=== PATIENT | female | born 1980 | race Caucasian/White ===

== ENCOUNTER → 2019-10-02 16:00 | Outpatient (BNVA) | payer MEDICAID, SELFPAY | PROVIDERS: Visit Provider Psychiatry & Neurology Psychiatry | DX: F31.9 Bipolar disorder, unspecified (principal) | CPT/HCPCS: 99214 ==

== ENCOUNTER → 2020-02-12 09:12 | Outpatient (BNVA) | payer MEDICAID, SELFPAY | PROVIDERS: Visit Provider Psychiatry & Neurology Psychiatry | DX: R45.86 Emotional lability (principal); Z03.89 Encounter for observation for other suspected diseases and conditions ruled out; F41.1 Generalized anxiety disorder | CPT/HCPCS: 99214 ==

== ENCOUNTER → 2020-05-27 07:49 | Outpatient (BNVA) | payer MEDICAID, SELFPAY | PROVIDERS: Visit Provider Nurse Practitioner | DX: F31.0 Bipolar disorder, current episode hypomanic (principal) | CPT/HCPCS: 99203 ==

== ENCOUNTER → 2020-06-16 10:02 | Outpatient (BNVA) | payer MEDICARE, MEDICAID, SELFPAY | PROVIDERS: Visit Provider Psychiatry & Neurology Psychiatry | DX: R45.86 Emotional lability (principal); Z79.899 Other long term (current) drug therapy; Z03.89 Encounter for observation for other suspected diseases and conditions ruled out | CPT/HCPCS: 80053; 80178; 84443; 85025 ==

== ENCOUNTER 2021-05-17 12:07 | Emergency (ER) | payer MEDICARE, MEDICAID, SELFPAY ==
[2021-05-17 12:11] VITALS: BP 130/94; PULSE 113; RESP 22; TEMP 36.7; O2SAT 98; BMI 20.3
--- NOTE | 2021-05-17 12:33 | XRR_ITS ---
PROCEDURE INFORMATION: Exam: XR Chest Exam date and time: 05/17/2021 12:33 PM Age: 41 years old Clinical indication: Cough; Patient HX: History--covid precautions; PT stated she feels like she has pneumonia; PT unable to put bra completely off due to iv line TECHNIQUE: Imaging protocol: XR of the chest. Views: 1 view. COMPARISON: CR Chest 1 [place] [id number] 06/18/2018 3:46 PM FINDINGS: Lungs: Unremarkable. No consolidation. Pleural spaces: Unremarkable. No pleural effusion. No pneumothorax. Heart/Mediastinum: Unremarkable. No cardiomegaly. Bones/joints: Unremarkable. XR/XR chest 1V portable [id number] IMPRESSION: No acute findings. Radiation Dose CTDIVOL = (mGy): DLP = (mGy-cm)
--- NOTE | 2021-05-17 13:08 | ED_ITS ---
HPI - SOB/Dyspnea General: Chief Complaint: Shortness of Breath/Dyspnea Stated Complaint: PNEUMONIA, BODY ACHES Time Seen by Provider: 05/17/21 12:17 History of Present Illness: HPI Narrative: 41-year-old female presents emergency room complaining of generalized body aches cough congestion myalgias diarrhea. Intermittently she has had a cough for almost a month recently has been worsening. Patient states she is used alcohol marijuana and several [id number] medications with no real significant improvement. No vomiting. Denies hematochezia melena hematemesis coffee-ground emesis. MD elicited complaint: shortness of breath and cough Pertinent past history: COPD Onset (ago): week(s) Context: occurred during exertion Timing: intermittent Severity: moderate Exacerbating factors: nothing Relieving factors: nothing Known history of: COPD Associated symptoms: Deny abdominal pain, chest congestion, chest pain, cough, diaphoresis, dizziness, extremity pain, fever(s), hemoptysis, lightheadedness, myalgias, nausea, orthopnea, palpitations, paresthesias, polydipsia, polyuria, rash, sense of impending doom, syncope or vomiting Treatment prior to arrival: none Review of Systems Const: Denies: fever(s) or diaphoresis ENMT: Denies: throat pain, ear or mastoid pain, nasal discharge or nasal congestion Card: Denies: chest pain, palpitations, lightheadedness, syncope or orthopnea Resp: Denies: hemoptysis or chest congestion GI: Denies: abdominal pain, nausea or vomiting : Denies: flank pain, difficulty voiding, dysuria, urinary frequency or urinary urgency Musc: Denies: extremity pain Skin/Breast: Denies: rash or pruritus Neuro: Denies: dizziness Endo: Denies: polyuria or polydipsia PFS ED PFSH: Medical History Other long-term (current) drug therapy Social History Smoking and tobacco status: current every day smoker Physical Exam Const: COMMON NORMALS: no acute distress GENERAL APPEARANCE: cooperative and comfortable ORIENTATION/CONSCIOUSNESS: Yes awake, Yes oriented to person, Yes oriented to place and Yes oriented to time HENMT: COMMON NORMALS: normocephalic, atraumatic and hearing grossly normal bilaterally HEAD & SCALP: normocephalic and atraumatic Neck/C-Spine: COMMON NORMALS: no JVD Resp: AUSCULTATION: rhonchi and wheezes Cardio: COMMON NORMALS: no JVD, regular rate, regular rhythm and No murmurs present (Cardio) RATE: regular rate RHYTHM: regular rhythm GI: COMMON NORMALS: Soft to palpation and No hepatosplenomegaly present AUSCULTATION: Yes normoactive bowel sounds PALPATION: Yes Soft to palpation, No Tenderness to palpation present (GI), No Guarding due to palpation present (GI) and Yes No hepatosplenomegaly present Extremity: COMMON NORMALS: normal to inspection, capillary refill normal, no clubbing, cyanosis or edema, no calf tenderness and no pedal edema Neuro: SENSORIUM/ORIENTATION: Yes oriented to person, Yes oriented to place and Yes oriented to time Skin: COMMON NORMALS: no rashes or lesions noted GENERAL SKIN EXAM: no rashes or lesions noted Course Vital Signs: Vital signs: Vital Signs Temperature 98.1 F 05/17/21 12:11 Pulse Rate 110 H 05/17/21 16:29 Respiratory Rate 16 05/17/21 16:29 Blood Pressure 147/85 05/17/21 16:29 Pulse Oximetry 98 05/17/21 16:29 MDM - SOB/Dyspnea MDM Narrative: Medical decision making narrative: Patient acutely intoxicated. Mild exacerbation of COPD. Started on antibiotics steroids albuterol as needed encourage alcohol abstinence follow-up as needed Lab Data: Labs: Lab Results 05/17/21 05/17/21 05/17/21 13:32 13:32 13:32 WBC 9.2 10^3/uL 10^3/ uL (4.0-10.0) RBC 4.42 10^6/uL 10^6 /uL (4.1-5.3) Hgb 12.8 g/dL g/dL (11.5-15.3) Hct 37.9 % % (37.0-47.0) MCV 85.7 fl fl (81-99) MCH 29.0 pg pg (28.0-34.0) MCHC 33.8 g/dL g/dL (30.0-36.0) RDW 18.7 % H % (12.1-15.1) Plt Count 320 10^3/cmm 10^3 /cmm (130-400) MPV 10.8 fL H fL (7.4-10.4) Neut % (Auto) 74.2 % % Lymph % (Auto) 16.2 % % [place] % (Auto) 8.3 % % Eos % (Auto) 0.1 % % Baso % (Auto) 0.8 % % Neut # (Auto) 6.85 10^3/uL 10^3 /uL (1.8-7.7) Lymph # (Auto) 1.5 10^3/uL 10^3/ uL (0.8-4.8) [place] # (Auto) 0.8 10^3/uL 10^3/ uL (0.2-0.9) Eos # (Auto) 0.0 10^3/uL 10^3/ uL (0.0-0.8) Baso # (Auto) 0.1 10^3/uL 10^3/ uL (0.0-0.1) Nucleated RBC % (a uto) 0 % % Nucleated RBCs # 0.0 /100WBC /100W BC C-Reactive Protein 0.3 mg/L mg/L (0.0-4.9) [place] 1.1 mmol/L mmol/L (0.6-1.2) Ethyl Alcohol 261 mg/dL H mg/dL (0-10) SARS-CoV-2 Ag (Rap id) 05/17/21 13:32 WBC RBC Hgb Hct MCV MCH MCHC RDW Plt Count MPV Neut % (Auto) Lymph % (Auto) [place] % (Auto) Eos % (Auto) Baso % (Auto) Neut # (Auto) Lymph # (Auto) [place] # (Auto) Eos # (Auto) Baso # (Auto) Nucleated RBC % (a uto) Nucleated RBCs # C-Reactive Protein [place] Ethyl Alcohol SARS-CoV-2 Ag (Rap id) Negative (Negative) Discharge Plan Discharge Patient Disposition: Home Clinical Impression: Bronchitis, Alcohol intoxication Condition: Stable Prescriptions: New doxycycline hyclate 100 mg capsule 100 mg PO BID 10 Days Qty: 20 RF: 0 Medrol ([place]) 4 mg tablets,dose pack See Rx Instructions .ROUTE .COMPLEX Qty: 21 RF: 0 albuterol sulfate 90 mcg/actuation HFA aerosol inhaler 2 inh INHALATION Q4H PRN (Reason: shortness of breath or wheezing) Qty: 18 RF: 0 No Action lithium carbonate 450 mg tablet extended release 450 mg PO DAILY Qty: 30 RF: 2 Discharge Orders: Discharge ED (Routine); Ordered 05/17/21 Ordered By: Baron Moreno Discharge Diet: Usual diet Discharge Activity: Increase activity as tolerated Patient Instructions: Opioid Safety Coding Level of Care Code ED Student Admissions Clerk for Glenis Fwd Exam Comprehensive
[2021-05-17 13:49] LABS: Basophils # 0.1 10^3/uL (0.0-0.1); Basophils % 0.8 %; Eosinophils % 0.1 %; Hematocrit 37.9 % (37.0-47.0); Hemoglobin 12.8 g/dL (11.5-15.3); Lymphocytes # 1.5 10^3/uL (0.8-4.8); Lymphocytes % 16.2 %; Mean Corpuscular HGB Conc 33.8 g/dL (30.0-36.0); Mean Corpuscular Volume 85.7 fl (81-99); Mean Platelet Volume 10.8 fL (7.4-10.4); Monocytes # 0.8 10^3/uL (0.2-0.9); Monocytes % 8.3 %; Neutrophils # 6.85 10^3/uL (1.8-7.7); Neutrophils % 74.2 %; Nucleated Red Blood Cells % 0 %; Platelet Count 320 10^3/cmm (130-400); Red Blood Count 4.42 10^6/uL (4.1-5.3); Red Cell Distribution Width 18.7 % (12.1-15.1); White Blood Count 9.2 10^3/uL (4.0-10.0)
[2021-05-17 14:04] LABS: Alcohol Level 261 mg/dL (0-10); C Reactive Protein 0.3 mg/L (0.0-4.9)
[2021-05-17 14:11] LABS: SARS Covid-2 Antigen Negative (Negative)
[2021-05-17 14:14] LABS: Lithium 1.1 mmol/L (0.6-1.2)
[2021-05-17 15:57] VITALS: BP 136/80; PULSE 110; RESP 19; O2SAT 98
[2021-05-17 16:29] VITALS: BP 147/85; PULSE 110; RESP 16; O2SAT 98
== END 2021-05-17 16:37 | disposition home or self-care (01) ==
PROVIDERS: Emergency Provider Family Medicine
DX: J40 Bronchitis, not specified as acute or chronic (principal); F10.129 Alcohol abuse with intoxication, unspecified; F12.90 Cannabis use, unspecified, uncomplicated; Y90.8 Blood alcohol level of 240 mg/100 ml or more; J44.9 Chronic obstructive pulmonary disease, unspecified
CPT/HCPCS: 71045; 80178; 80307; 85025; 86140; 87426; 99282

== ENCOUNTER 2021-09-14 22:46 | Emergency (ER) | payer MEDICARE, MEDICAID, SELFPAY ==
--- NOTE | 2021-09-14 22:51 | XRR_ITS ---
PROCEDURE INFORMATION: Exam: XR Left Foot Exam date and time: 09/14/2021 10:51 PM Age: 41 years old Clinical indication: Ankle and foot; Patient HX: Pain to lateral aspect of foot and ankle of left side. No known injury TECHNIQUE: Imaging protocol: XR Left foot. Views: 3 or more views. COMPARISON: No relevant prior studies available. FINDINGS: There is no evidence of fracture. The joint spaces are well maintained. There is no bony destruction. XR/XR foot LT min 3V* [id number] IMPRESSION: No evidence of fracture. Is
--- NOTE | 2021-09-14 22:51 | XRR_ITS ---
PROCEDURE INFORMATION: Exam: XR Left Ankle Exam date and time: 09/14/2021 10:51 PM Age: 41 years old Clinical indication: Pain; Ankle and foot; Patient HX: Injury to lateral aspect of foot and ankle of left side. No known injury; Additional info: Injury/pain TECHNIQUE: Imaging protocol: XR Left ankle. Views: 3 or more views. COMPARISON: No relevant prior studies available. FINDINGS: There is no evidence of fracture. The ankle mortise is intact. There is no soft tissue swelling. There is no joint effusion. There is no bony destruction. The talar dome is unremarkable. XR/XR ankle LT min 3V* [id number] IMPRESSION: Unremarkable ankle.
[2021-09-14 22:56] VITALS: BP 103/65; PULSE 95; RESP 18; TEMP 36.4; O2SAT 97; BMI 19.8
--- NOTE | 2021-09-14 23:20 | W.ED.LOWEXIN ---
HPI - Extremity Injury (Lower) General: Chief Complaint: Extremity Injury, Lower Stated Complaint: Left Foot\Ankle Injury Time Seen by Provider: 09/14/21 22:51 Source: patient Mode of arrival: wheelchair Limitations: no limitations History of Present Illness: Patient is a 41-year-old female who presents to ED today with a complaint of a left foot injury that she sustained prior to arrival after falling. Patient states she fell secondary to alcohol use. She states she is not able to bear weight on the foot secondary to pain. She denies striking her head or LOC. She has no other physical complaints at this time. complaint: foot injury and fall Onset (ago): hour(s) Injury: Left: foot Place: home Severity: moderate Relieving factors: immobilization Exacerbating factors: weight bearing, movement and palpation Context: fall Associated symptoms: Reports inability to bear weight Other symptoms: none Review of Systems Eyes: Denies: change in vision Card: Denies: chest pain or palpitations Resp: Denies: dyspnea GI: Denies: abdominal pain, nausea or vomiting Musc: Reports: extremity pain (L foot); Denies: neck pain, back pain or extremity swelling Neuro: Denies: headache(s), numbness in extremities, weakness in extremities or sensory changes PFS ED PFSH: Medical History Other fdc (current) drug therapy Social History Smoking and tobacco status: current every day smoker Physical Exam Const: COMMON NORMALS: no acute distress, average body habitus, patient oriented x3, healthy appearing, alert and well nourished GENERAL APPEARANCE: cooperative and odor of alcohol detected ORIENTATION/CONSCIOUSNESS: Yes awake, Yes oriented to person, Yes oriented to place and Yes oriented to time HENMT: COMMON NORMALS: normocephalic and atraumatic HEAD & SCALP: normal to inspection, normocephalic and atraumatic Neck/C-Spine: CERVICAL SPINE: Yes cervical ROM normal, No pain with cervical ROM and No Cervical spine tenderness Resp: COMMON NORMALS: normal respiratory effort Cardio: COMMON NORMALS: regular rate and regular rhythm RATE: regular rate RHYTHM: regular rhythm Back/Pelvis: COMMON NORMALS: thoracic and lumbar spine normal to inspection, no thoracic nor lumbar tenderness and thoraco-lumbar ROM normal Extremity: GENERAL: Yes normal exam except as noted LEFT LOWER EXTREMITY: Yes foot & digits (TTP anterior proximal foot and medial foot; no swelling/deformity) Left foot and digits: Yes neurovascular exam (normal) Neuro: RIK COMA SCALE: document GCS findings [place] coma scale eye opening: Spontaneous [place] coma scale verbal response: Orientated [place] coma scale motor response: Obey commands [place] coma scale total score: 15 COMMON NORMALS: patient oriented x3, moves all extremities, no focal motor deficits and no sensory deficits noted SENSORIUM/ORIENTATION: Yes alert, Yes oriented to person, Yes oriented to place and Yes oriented to time Skin: COMMON NORMALS: no rashes or lesions noted GENERAL SKIN EXAM: no rashes or lesions noted TRAUMA: no lacerations or abrasions Course Vital Signs: Vital signs: Vital Signs Temperature 97.5 F L 09/14/21 22:56 Pulse Rate 95 09/14/21 22:56 Respiratory Rate 18 09/14/21 22:56 Blood Pressure 103/65 09/14/21 22:56 Pulse Oximetry 97 09/14/21 22:56 MDM - Extremity Injury (Lower) Medical Decision Making XRs negative. Will ARIANE wrap/crutches and discussed RICE therapy/weight bearing as tolerated. Follow up with PCP in 1-2 wks if pain persists. Imaging Data L foot/ankle XR: My impression: NAD Discharge Plan Discharge Patient Disposition: Home Clinical Impression: Sprain of foot, left Condition: Stable Prescriptions: No Action lithium carbonate 450 mg tablet extended release 450 mg PO DAILY Qty: 30 2RF Medrol ([place]) 4 mg tablets,dose pack See Rx Instructions .ROUTE .COMPLEX Qty: 21 0RF Rx Instructions: orally per package directions albuterol sulfate 90 mcg/actuation HFA aerosol inhaler 2 inh INHALATION Q4H PRN (Reason: shortness of breath or wheezing) Qty: 18 0RF Discharge Orders: Discharge ED (Routine); Ordered 09/14/21 Ordered By: Nakia Larry Coding Level of Care Code ED Quality Control Tech for Chg Fwd Exam Comprehensive
== END 2021-09-14 23:45 | disposition home or self-care (01) ==
PROVIDERS: Emergency Provider Physician Assistant
DX: S93.602A Unspecified sprain of left foot, initial encounter (principal); F17.210 Nicotine dependence, cigarettes, uncomplicated; W19.XXXA Unspecified fall, initial encounter
CPT/HCPCS: 73610; 73630; 99282

== ENCOUNTER → 2022-01-19 10:03 | Outpatient (BNVA) | payer MEDICARE, MEDICAID, SELFPAY | PROVIDERS: Visit Provider Family Medicine Adult Medicine | DX: S59.902A Unspecified injury of left elbow, initial encounter (principal); W19.XXXA Unspecified fall, initial encounter | CPT/HCPCS: 73080 ==

== ENCOUNTER 2022-05-17 00:19 | Emergency (ER) | payer MEDICARE, MEDICAID, SELFPAY ==
[2022-05-17 00:32] VITALS: BP 120/76; PULSE 85; RESP 18; TEMP 36.6; O2SAT 98; BMI 20.3
--- NOTE | 2022-05-17 01:00 | W.ED.WOUNDLC ---
HPI - Wound/Laceration General: Chief Complaint: Wound/Laceration Stated Complaint: Rt Eye Injury Time Seen by Provider: 05/17/22 00:31 History of Present Illness: 42-year-old female comes in today for complaints of injury sustained during a fall at home. Patient reports she jumped up to grab the garage door to pull it down when she tripped and fell striking the right brow against the ground. Patient denies loss of consciousness. Patient reports no headache nausea vomiting or any other symptoms. Associated symptoms: Denies fever(s) Review of Systems Const: Denies: fever(s) Resp: Denies: dyspnea Musc: Denies: neck pain Skin/Breast: Reports: new lesions [facility] ED PFSH: Medical History (Updated 05/17/22 @ 00:58 by JOSE Scherer) Injury of left elbow region Other outpatient dietitian (current) drug therapy Social History Smoking and tobacco status: current every day smoker Physical Exam Const: COMMON NORMALS: alert HENMT: HEAD & SCALP: laceration (Right lateral eyebrow irregular 2 cm laceration) Neck/C-Spine: COMMON NORMALS: full ROM CERVICAL SPINE: No Cervical spine tenderness Resp: COMMON NORMALS: normal respiratory effort and clear to auscultation bilaterally AUSCULTATION: clear to auscultation bilaterally Cardio: COMMON NORMALS: regular rate and regular rhythm RATE: regular rate RHYTHM: regular rhythm Back/Pelvis: COMMON NORMALS: thoracic and lumbar spine normal to inspection Extremity: COMMON NORMALS: full ROM Neuro: SENSORIUM/ORIENTATION: Yes alert Skin: TRAUMA: laceration (Right eyebrow 2-1/2 cm) irregular Procedures Laceration Laceration 1: Site: face Side (If applicable): right Size (cm): 2 Depth: simple, single layer Local Anesthetic: lidocaine 1% and with epi Amount of anesthesia used (mL): 1 Pre-repair: wound explored and irrigated extensively Skin layer closed with: nylon Size (cm): 6-0 Number of sutures: 4 Technique: simple, interrupted Course Vital Signs: Vital signs: Vital Signs Temperature 97.9 F 05/17/22 00:32 Pulse Rate 85 05/17/22 00:32 Respiratory Rate 18 05/17/22 00:32 Blood Pressure 120/76 05/17/22 00:32 Pulse Oximetry 98 05/17/22 00:32 Oxygen Delivery Me thod 05/17/22 00:32 MDM - Wound/Laceration Medical Decision Making 42-year-old female comes in today with injury to the right lateral eyebrow. Patient has a irregular shaped laceration to the lateral right eyebrow. Laceration size about 2 cm. Differential diagnosis includes fracture, foreign body, laceration. Patient reported that her tetanus was up-to-date. No sign of foreign body was noted. No fracture was noted in the bone. Wound was irrigated thoroughly and closed with 6-0 nylon suture. Patient tolerated well. Reviewed postprocedure care and instructions with patient and family member both reported understanding agreed to plan. Discharge Plan Discharge Patient Disposition: Home Clinical Impression: Laceration of brow without complication Qualifiers: Encounter type: initial encounter Qualified Code(s): S01.81XA - Laceration without foreign body of other part of head, initial encounter Condition: Stable Prescriptions: New cephalexin 500 mg capsule 500 mg PO BID 7 Days Qty: 14 0RF No Action anti-depressant PO DAILY cephalexin 750 mg capsule 750 mg PO BID Qty: 14 0RF Discharge Orders: Discharge ED (Routine); Ordered 05/17/22 Ordered By: Antonio Adams Referrals: Milka Foreman PA [Primary Care Provider] - Discharge Diet: Usual diet Discharge Activity: Increase activity as tolerated Patient Instructions: Care For Your Stitches (ED) Activity Restrictions/Additional Instructions: Keep wound clean and dry. It is important to keep the wound as dry as possible for the next 48 hours. After that you can wash wound gently with mild soap and water and then dry thoroughly. Sutures need to come out in 5 to 7 days. Follow-up with primary care in 1 week for recheck. Take oral antibiotic cephalexin 500 mg, 1 tablet twice a day for 7 days. Return to ED for new concerns or worsening symptoms. Coding Level of Care Code ED Conveyor Attendant for Glen[facility] Medina
[2022-05-17] MEDS: cephALEXin 500 mg Capsule PO (01:16)
== END 2022-05-17 01:17 | disposition home or self-care (01) ==
PROVIDERS: Emergency Provider Nurse Practitioner Family; PCP Physician Assistant
DX: S01.81XA Laceration without foreign body of other part of head, initial encounter (principal); F17.210 Nicotine dependence, cigarettes, uncomplicated; W01.0XXA Fall on same level from slipping, tripping and stumbling without subsequent striking against object, initial encounter
CPT/HCPCS: 12011; 99283

== ENCOUNTER 2022-06-03 10:15 | Emergency (ER) | payer MEDICARE, MEDICAID, SELFPAY ==
--- NOTE | 2022-06-03 10:36 | XRR_ITS ---
PROCEDURE INFORMATION: Exam: XR Left Shoulder Exam date and time: 06/03/2022 10:41 AM Age: 42 years old Clinical indication: Pain; Shoulder; Left; Additional info: L shoulder pain TECHNIQUE: Imaging protocol: Radiologic exam of the Left shoulder. Views: 2 or more views. Total images: 3 COMPARISON: CR XR chest 1V portable [id number] 05/17/2021 12:38 PM FINDINGS: Bones/joints: Normal. Soft tissues: Normal. XR/XR shoulder LT min 2V* [id number] IMPRESSION: No acute findings.
[2022-06-03 10:58] VITALS: BP 131/85; PULSE 122; RESP 14; TEMP 36.7; O2SAT 96; BMI 19.8
--- NOTE | 2022-06-03 11:31 | W.ED.EXTPRO ---
HPI - Extremity Problem General: Chief complaint: Extremity Problem,Nontraumatic Stated complaint: Left shoulder pain Time Seen by Provider: 06/03/22 11:31 Source: patient Mode of arrival: ambulatory Limitations: no limitations History of Present Illness: 42-year-old female presents to the ER today for left shoulder pain for the last several months. Patient denies any known injury. She reports the pain is continuing to worsen at this time. Patient reports she is taking Aleve with no improvement. Patient has not had any imaging done at this time. Patient reports the pain bothers her most at night. Review of Systems General: Reports: 10 or more systems reviewed and unremarkable except in HPI and below PFSH ED PFSH: Medical History Injury of left elbow region Other rat exterminator (current) drug therapy Social History Smoking and tobacco status: current every day smoker Physical Exam Const: COMMON NORMALS: no acute distress, average body habitus, patient oriented x3, no limitations, healthy appearing, alert and well nourished Resp: COMMON NORMALS: normal respiratory effort EFFORT & INSPECTION: Yes able to speak in complete sentences Cardio: COMMON NORMALS: regular rate and regular rhythm RATE: regular rate RHYTHM: regular rhythm Extremity: NARRATIVE EXTREMITY EXAM: Exam of the left shoulder is unremarkable. Patient is nontender on exam. She has normal range of motion but reports pain. No deformities noted. No skin changes noted. Neuro: COMMON NORMALS: patient oriented x3 SENSORIUM/ORIENTATION: Yes alert Psych: COMMON NORMALS: mental status grossly normal, Normal thought process present and cooperative THOUGHT PROCESS: Normal thought process present Skin: COMMON NORMALS: no rashes or lesions noted and no wounds GENERAL SKIN EXAM: no rashes or lesions noted Course ED course: Patient has left shoulder pain with no known injury. We will start with an x-ray at this time. Vital Signs: Vital signs: Vital Signs Temperature 98.0 F 06/03/22 10:58 Pulse Rate 122 H 06/03/22 10:58 Respiratory Rate 14 06/03/22 10:58 Blood Pressure 131/85 06/03/22 10:58 Pulse Oximetry 96 06/03/22 10:58 Oxygen Delivery Me thod 06/03/22 10:58 MDM - Extremity (Nontraumatic) Medical Decision Making Patient presents for left shoulder pain. Imaging of the left shoulder is normal. Patient likely has a bursitis versus tendinitis. We will do a Medrol Dosepak at this time. That should help some of the inflammation and pain patient is having. Also recommended patient continue the Aleve. Follow-up with PCP in 10 to 14 days if no improvement. Return to the ER with new or worsening symptoms. Patient verbalized understanding and was in agreement with the treatment plan. Lab Data Radiology Impressions Shoulder X-Ray 06/03/22 10:36 IMPRESSION: No acute findings. Critical Care Time Critical Care Time: Critical Care Time: No Discharge Plan Discharge Patient Disposition: Home Clinical Impression: Acute pain of left shoulder Condition: Stable Prescriptions: New Medrol ([place]) 4 mg tablets,dose pack See Rx Instructions .ROUTE .COMPLEX Qty: 21 0RF Rx Instructions: orally per package directions No Action anti-depressant PO DAILY cephalexin 750 mg capsule 750 mg PO BID Qty: 14 0RF Discharge Orders: Discharge ED (Routine); Ordered 06/03/22 Ordered By: Edilma Youssef Referrals: Milka Foreman PA [Primary Care Provider] - Discharge Diet: Usual diet Discharge Activity: Increase activity as tolerated Patient Instructions: Opioid Safety, Pain Management Activity Restrictions/Additional Instructions: Take Medrol Dosepak and Aleve as discussed. Apply ice. Topical muscle rub recommended. Do not apply with ice or heat. Follow-up with PCP in 10 to 14 days if no improvement. Return to the ER with new or worsening symptoms. Coding Level of Care Code ED Mobile Development Manager for Glenis Medina
== END 2022-06-03 12:03 | disposition home or self-care (01) ==
PROVIDERS: Emergency Provider Physician Assistant; PCP Physician Assistant
DX: M25.512 Pain in left shoulder (principal); F17.210 Nicotine dependence, cigarettes, uncomplicated
CPT/HCPCS: 73030; 99283

== ENCOUNTER 2022-08-18 15:03 | Outpatient (CLI) | payer MEDICARE, MEDICAID, SELFPAY ==
--- NOTE | 2022-08-18 15:20 | MR_ITS ---
WS: [id number] MRI LEFT SHOULDER HISTORY: LEFT SHOULDER JOINT PAIN COMPARISON: Radiographs 06/03/2022 TECHNIQUE: Multiplanar sequences of the shoulder joint are submitted. Mild AC joint arthritis. Slight encroachment for the supraspinatus muscle and tendon but no deformity . No subacromial impingement. No significant joint effusion. No os acromion. Biceps tendon normal pos ition. Rotator cuff muscles are normal size. No edema or atrophy. No tears or tendon retraction. Mild encroa chment upon the subscapularis tendon due to an osteophyte or bony hypertrophy from the coracoid. No l abral tears. MR/MR shoulder LT wo con* [id number] IMPRESSION: 1. Mild AC joint arthritis. 2. No rotator cuff tear. 3. Mild coracoid encroachment upon the subscapularis tendon with no tear or te ndinopathy. 4. No joint effusion.
== END 2022-08-18 15:04 | disposition home or self-care (01) ==
LOC: RAD 15:03
PROVIDERS: PCP Physician Assistant; Visit Provider Nurse Practitioner Family
DX: M25.512 Pain in left shoulder (principal)
CPT/HCPCS: 73221

== ENCOUNTER 2023-06-26 22:05 | Emergency (ER) | payer MEDICARE, SELFPAY ==
--- NOTE | 2023-06-26 22:08 | XRR_ITS ---
PROCEDURE INFORMATION: Exam: XR Right Shoulder Exam date and time: 06/26/2023 10:29 PM Age: 43 years old Clinical indication: Injury or trauma; Fall; Blunt trauma (contusions or hematomas); Shoulder; Right TECHNIQUE: Imaging protocol: Radiologic exam of the right shoulder. Views: 2 or more views. COMPARISON: CR XR chest 1V portable [id number] 05/17/2021 12:38 PM FINDINGS: Bones/joints: Mildly displaced fracture to the lateral aspect of the clavicle. Soft tissues: Normal. XR/XR shoulder RT min 2V* [id number] IMPRESSION: Mildly displaced fracture to the lateral aspect of the clavicle.
[2023-06-26 22:17] VITALS: BP 117/78; PULSE 103; RESP 17; TEMP 36.7; O2SAT 98; BMI 20.3
--- NOTE | 2023-06-26 22:30 | ED_ITS ---
HPI - Fall General: Chief Complaint: Fall Stated Complaint: fall, right shoulder injury Time Seen by Provider: 06/26/23 22:10 Source: patient Mode of arrival: ambulatory Limitations: no limitations History of Present Illness: 43-year-old female states that she had b een drinking at night and she had fell down a stair. States she landed on her right shoulder she had right shoulder pain since then. States this happened roughly an hour ago. Associated symptoms-after fall: Denies abdominal pain, chest pain, headache(s) or neck pain Review of Systems Const: Denies: fever(s), chills, body aches or change in appetite ENMT: Denies: throat pain or dental pain Card: Denies: chest pain Resp: Denies: dyspnea GI: Denies: abdominal pain, nausea, vomiting or diarrhea Musc: Reports: extremity pain; Denies: neck pain or back pain Skin/Breast: Denies: rash Neuro: Denies: headache(s) PFSH ED PFSH: Medical History Injury of left elbow region Other [facility] (current[facility] drug therapy Social History Smoking and tobacco/nicotine status: current every day tobacco/nicotine user Physical Exam Const: COMMON NORMALS: no acute distress, patient oriented x3 and healthy appearing HENMT: COMMON NORMALS: normocephalic and atraumatic HEAD & SCALP: normocephalic and atraumatic Eye: COMMON NORMALS: Equal, round and reactive pupils present and EOMs intact bilaterally PUPIL: Yes Equal, round and reactive pupils present Neck/C-Spine: COMMON NORMALS: full ROM and supple CERVICAL SPINE: Yes cervical ROM normal, No pain with cervical ROM and No Cervical spine tenderness Chest: COMMONS NORMALS: normal inspection of the chest and normal palpation of entire chest wall Resp: COMMON NORMALS: normal respiratory effort, No retractions, No use of accessory muscles and clear to auscultation bilaterally AUSCULTATION: clear to auscultation bilaterally Cardio: COMMON NORMALS: regular rate, regular rhythm and No murmurs present (Cardio) RATE: regular rate RHYTHM: regular rhythm Extremity: COMMON NORMALS: full ROM NARRATIVE EXTREMITY EXAM: Tenderness over right shoulder no obvious deformity full range of motion. Neuro: COMMON NORMALS: patient oriented x3, moves all extremities and no focal motor deficits Psych: COMMON NORMALS: mental status grossly normal, Normal thought process present and cooperative THOUGHT PROCESS: Normal thought process present Skin: COMMON NORMALS: no rashes or lesions noted and no wounds GENERAL SKIN EXAM: no rashes or lesions noted Course Vital Signs: Vital signs: Vital Signs Temperature 98.1 F 06/26/23 22:17 Pulse Rate 103 H 06/26/23 22:17 Respiratory Rate 17 06/26/23 22:17 Blood Pressure 117/78 06/26/23 22:17 Pulse Oximetry 98 06/26/23 22:17 Oxygen Delivery Me thod Room Air 06/26/23 22:17 MDM - Fall Medical Decision Making Patient presents here with right clavicle fracture from a fall she has no signs of head or neck injury patient is stable for discharge we will place in a sling will get follow-up with orthopedics. Medical Records I reviewed the patient's medical records. XR interpretation done by ED provider, pending radiology final review ED provider radiology interpretation(s): xr shoulder: right clavicle fx Discharge Plan Discharge Patient Disposition: Home Clinical Impression: Fracture of right clavicle Condition: Stable Prescriptions: New hydrocodone-acetaminophen 5-325 mg tablet 1 tab PO Q6H PRN (Reason: pain) Qty: 14 0RF No Action anti-depressant PO DAILY cephalexin 750 mg capsule 750 mg PO BID Qty: 14 0RF Medrol ([place]) 4 mg tablets,dose pack See Rx Instructions .ROUTE .COMPLEX Qty: 21 0RF Rx Instructions: orally per package directions Discharge Orders: Discharge ED (Routine); Ordered 06/26/23 Ordered By: Golden Snow Referrals: Dior Heath MD [Physician] - 1-3 days Milka Foreman PA [Primary Care Provider] - Discharge Diet: Advance as tolerated Discharge Activity: Resume usual activity Patient Instructions: Clavicle Fracture (ED) Coding Level of Care Code ED Director Of Radiology for Glenis Medina
[2023-06-26] MEDS: HYDROcodone-acetaminophen 5-325 mg Tablet 1 TAB PO (22:48)
--- NOTE | 2023-06-27 07:07 | DCPLANNER ---
Message sent to Ortho for Follow up on Clavicle Fx
== END 2023-06-26 22:57 | disposition home or self-care (01) ==
PROVIDERS: Emergency Provider Emergency Medicine; PCP Physician Assistant
DX: S42.031A Displaced fracture of lateral end of right clavicle, initial encounter for closed fracture (principal); Z72.0 Tobacco use; W10.8XXA Fall (on) (from) other stairs and steps, initial encounter
CPT/HCPCS: 73030; 99283

== ENCOUNTER → 2023-06-29 13:52 | Outpatient (BNVA) | payer MEDICARE, SELFPAY | PROVIDERS: PCP Physician Assistant; Referring Provider Emergency Medicine; Visit Provider Nurse Practitioner | DX: S42.031A Displaced fracture of lateral end of right clavicle, initial encounter for closed fracture; W10.9XXA Fall (on) (from) unspecified stairs and steps, initial encounter; Y92.009 Unspecified place in unspecified non-institutional (private) residence as the place of occurrence of the external cause | CPT/HCPCS: 23500; 73000; 99204 ==

== ENCOUNTER → 2023-07-19 07:55 | Outpatient (BNVA) | payer MEDICARE, SELFPAY | PROVIDERS: PCP Physician Assistant; Visit Provider Nurse Practitioner | DX: S42.031D Displaced fracture of lateral end of right clavicle, subsequent encounter for fracture with routine healing (principal); W19.XXXD Unspecified fall, subsequent encounter; Y92.009 Unspecified place in unspecified non-institutional (private) residence as the place of occurrence of the external cause | CPT/HCPCS: 73000; 99024 ==

== ENCOUNTER 2023-10-29 14:11 | Emergency (ER) | payer MEDICARE, SELFPAY ==
--- NOTE | 2023-10-29 14:15 | ECG_ITS ---
[facility] Test Date: 2023-10-29 Pat Name: Naida Chapa Department: Room: Gender: Female Applique Sewer: : 1980 Requested By: Baron Schwarz Order Number: [id number] Gali MD: Bay Davalos M.D. Measurements Intervals [place] Rate: 82 P: 73 ME: 144 QRS: 83 QRSD: 88 T: 74 QT: 372 QTc: 435 Interpretive Statements SINUS RHYTHM Compared to ECG 06/18/2018 17:23:13 No significant changes Electronically Signed On 10-30-2023 14:59:44 CDT by Bay Davalos M.D. [id number]
[2023-10-29 14:20] VITALS: BP 143/96; PULSE 77; RESP 19; TEMP 36.7; O2SAT 99; BMI 20.3
--- NOTE | 2023-10-29 14:32 | XRR_ITS ---
PROCEDURE INFORMATION: Exam: XR Chest Exam date and time: 10/29/2023 3:03 PM Age: 43 years old Clinical indication: Pain; Chest pressure; Additional info: Chest pain TECHNIQUE: Imaging protocol: Radiologic exam of the chest. Views: 1 view. COMPARISON: CR XR chest 1V portable [id number] 05/17/2021 12:38 PM FINDINGS: Lungs: Unremarkable. No consolidation. Pleural spaces: Unremarkable. No pleural effusion. No pneumothorax. Heart/Mediastinum: Unremarkable. No cardiomegaly. Bones/joints: Unremarkable. XR/XR chest 1V portable [id number] IMPRESSION: No acute findings.
--- NOTE | 2023-10-29 14:36 | W.ED.CHESTPA ---
HPI - Chest Pain General: Chief Complaint: Chest Pain Stated Complaint: Chest pains Time Seen by Provider: 10/29/23 14:31 Source: patient Mode of arrival: ambulatory History of Present Illness: 43-year-old female presents to the emergency room with complaint of MD complaint: chest pain [facility] ED PFSH: Medical History Fall as cause of accidental injury at home as place of occurrence Injury of left elbow region Other [employer] (current) drug therapy Social History Smoking and tobacco/nicotine status: current every day tobacco/nicotine user Course Vital Signs: Vital signs: Vital Signs Temperature 98.1 F 10/29/23 14:20 Pulse Rate 77 10/29/23 14:20 Respiratory Rate 19 H 10/29/23 14:20 Blood Pressure 143/96 10/29/23 14:20 Pulse Oximetry 99 10/29/23 14:20 Oxygen Delivery Me thod Room Air 10/29/23 14:20 MDM - Chest Pain Medical Decision Making Labs and imaging reviewed. No significant abnormality troponin done is less than 6 she has had this for over 96 hours pain is reproducible with palpation and inspiration typical of a chest wall pain. Will discharge patient home diclofenac to use as needed return if has further problems. Clinically no signs of PE history and labs do not correlate with acute coronary syndrome. Chest x-ray did not show signs of pneumonia or pneumothorax or widening mediastinum follow-up primary care if not improving Medical Records I reviewed the patient's medical records. Lab Data I reviewed the patient's lab results. 10/29/23 14:42 10/29/23 14:42 Radiology Impressions Chest X-Ray 10/29/23 14:32 IMPRESSION: No acute findings. Laboratory Results WBC 6.20 10^3/uL (3.29-11.43) 10/29/23 14:42 RBC 4.21 10^6/uL (3.85-5.65) 10/29/23 14:42 Hgb 12.80 g/dL (11.27-16.99) 10/29/23 14:42 Hct 39.4 % (36-47) 10/29/23 14:42 MCV 93.6 fl (85-98) 10/29/23 14:42 MCH 30.4 pg (27-33) 10/29/23 14:42 MCHC 32.5 g/dL (30-55) 10/29/23 14:42 RDW 16.7 % (12.1-15.1) H 10/29/23 14:42 Plt Count 232 10^3/cmm (157-399) 10/29/23 14:42 MPV 10.1 fL (7.4-10.4) 10/29/23 14:42 Neut % (Auto) 68.0 % 10/29/23 14:42 Lymph % (Auto) 22.3 % 10/29/23 14:42 Brantley % (Auto) 7.1 % 10/29/23 14:42 Eos % (Auto) 1.3 % 10/29/23 14:42 Baso % (Auto) 0.8 % 10/29/23 14:42 Neut # (Auto) 4.22 10^3/uL (1.8-7.7) 10/29/23 14:42 Lymph # (Auto) 1.4 10^3/uL (0.8-4.8) 10/29/23 14:42 Brantley # (Auto) 0.4 10^3/uL (0.2-0.9) 10/29/23 14:42 Eos # (Auto) 0.1 10^3/uL (0.0-0.8) 10/29/23 14:42 Baso # (Auto) 0.1 10^3/uL (0.0-0.1) 10/29/23 14:42 Nucleated RBC % (auto) 0 % 10/29/23 14:42 Nucleated RBCs # 0.0 /100WBC 10/29/23 14:42 Sodium 131 mmol/L (136-145) L 10/29/23 14:42 Potassium 3.3 mmol/L (3.5-5.1) L 10/29/23 14:42 Chloride 97 mmol/L (98-107) L 10/29/23 14:42 Carbon Dioxide 25 mmol/L (22-29) 10/29/23 14:42 Anion Gap 12.3 (5-19) 10/29/23 14:42 BUN 7 mg/dL (6-20) 10/29/23 14:42 Creatinine 0.5 mg/dL (0.5-0.9) 10/29/23 14:42 GFR Calculation 134.7 mL/min (90-130) H 10/29/23 14:42 Glucose 100 mg/dL (65-115) 10/29/23 14:42 Calculated Osmolality 270 mOsm/kg (285-295) L 10/29/23 14:42 Calcium 9.0 mg/dL (8.5-10.5) 10/29/23 14:42 Total Bilirubin 0.4 mg/dL (0.15-1.2) 10/29/23 14:42 AST 16 U/L (0-32) 10/29/23 14:42 ALT 13 U/L (0-33) 10/29/23 14:42 Alkaline Phosphatase 44 U/L (35-105) 10/29/23 14:42 Troponin T Baseline < 6 ng/L (0-10) 10/29/23 14:42 Total Protein 7.5 g/dL (6.6-8.7) 10/29/23 14:42 Albumin 4.2 g/dL (3.5-5.2) 10/29/23 14:42 Globulin 3.3 g/dL (1.3-4.6) 10/29/23 14:42 Urine Color Yellow (Yellow) 10/29/23 16:00 Urine Appearance Clear (CLEAR) 10/29/23 16:00 Urine pH 6 (5-7) 10/29/23 16:00 Ur Specific [place] 1.020 (1.005-1.030) 10/29/23 16:00 Urine Protein Neg (Negative) 10/29/23 16:00 Urine Glucose (UA) 1+ (Normal) H 10/29/23 16:00 Urine Ketones Negative (Negative) 10/29/23 16:00 Urine Blood Neg (Negative) 10/29/23 16:00 Urine Nitrate Negative (Negative) 10/29/23 16:00 Urine Bilirubin Neg (Negative) 10/29/23 16:00 Urine Urobilinogen Norm mg/dL (Negative) 10/29/23 16:00 Ur Leukocyte Esterase Negative (Negative) 10/29/23 16:00 All radiology interpretation(s) finalized by discharge Discharge Plan Discharge Patient Disposition: Home Clinical Impression: Anterior chest wall pain Condition: Stable Prescriptions: New diclofenac sodium 75 mg tablet,delayed release (DR/EC) 75 mg PO Q12H PRN (Reason: pain) Qty: 20 0RF No Action trazodone 150 mg tablet 150 mg PO BEDTIME lamotrigine 100 mg tablet 100 mg PO DAILY (DME) Clavicle Strap See Rx Instructions .Route .MEDSUPPLY Qty: 1 0RF Rx Instructions: As directed Discharge Orders: Discharge ED (Routine); Ordered 10/29/23 Ordered By: Baron Moreno Referrals: Milka Foreman PA [Primary Care Provider] - Discharge Diet: Usual diet Discharge Activity: Resume usual activity Patient Instructions: Opioid Safety, Pain Management Activity Restrictions/Additional Instructions: Thank you for choosing [facility] for your healthcare needs today. Please realize this is an emergency room and that we are providing you with a medical screening exam and this may not be complete and all inclusive of all the testing and or work up that you may need to determine your ailment or severity of your illness. It is very important that you follow up as instructed or that you return to the Emergency Department should you have concerns or if your condition changes or worsens in any way. You were seen today with complaints chest pain. Your chest pain is musculoskeletal in nature your cardiac enzymes are normal and EKG was normal chest x-ray did not show any acute abnormalities. The remainder your labs did not show clinically significant abnormalities. Will discharge you home with diclofenac to use as needed. Coding Level of Care Code ED Roller Mechanic for Glenis Medina
[2023-10-29 14:48] LABS: Basophils # 0.1 10^3/uL (0.0-0.1); Basophils % 0.8 %; Eosinophils # 0.1 10^3/uL (0.0-0.8); Eosinophils % 1.3 %; Hematocrit 39.4 % (36-47); Lymphocytes # 1.4 10^3/uL (0.8-4.8); Lymphocytes % 22.3 %; Mean Corpuscular HGB Conc 32.5 g/dL (30-55); Mean Corpuscular Hemoglobin 30.4 pg (27-33); Mean Corpuscular Volume 93.6 fl (85-98); Mean Platelet Volume 10.1 fL (7.4-10.4); Monocytes # 0.4 10^3/uL (0.2-0.9); Monocytes % 7.1 %; Neutrophils # 4.22 10^3/uL (1.8-7.7); Nucleated Red Blood Cells % 0 %; Platelet Count 232 10^3/cmm (157-399); Red Blood Count 4.21 10^6/uL (3.85-5.65); Red Cell Distribution Width 16.7 % (12.1-15.1)
[2023-10-29 15:05] LABS: Troponin(5th) Baseline < 6 ng/L (0-10)
[2023-10-29 15:07] LABS: Alanine Aminotransferase 13 U/L (0-33); Albumin Level 4.2 g/dL (3.5-5.2); Alkaline Phosphatase 44 U/L (35-105); Anion Gap 12.3 (5-19); Aspartate Amino Transferase 16 U/L (0-32); Blood Urea Nitrogen 7 mg/dL (6-20); Carbon Dioxide 25 mmol/L (22-29); Chloride 97 mmol/L (98-107); Creatinine Clr Calc Pharmacy 119.7934; Globulin 3.3 g/dL (1.3-4.6); Glomerular Filtration Rate 134.7 mL/min (90-130); Glucose 100 mg/dL (65-115); Osmolality Calculated 270 mOsm/kg (285-295); Potassium 3.3 mmol/L (3.5-5.1); Sodium 131 mmol/L (136-145); Total Bilirubin 0.4 mg/dL (0.15-1.2); Total Protein 7.5 g/dL (6.6-8.7)
--- NOTE | 2023-10-29 16:11 | ECG_ITS ---
[facility] Test Date: 2023-10-29 Pat Name: Naida Chapa Department: Room: Gender: Female Director Mba: : 1980 Requested By: Baron Schwarz Order Number: [id number] Gali MD: Bay Davalos M.D. Measurements Intervals [place] Rate: 70 P: 67 SD: 163 QRS: 80 QRSD: 88 T: 71 QT: 392 QTc: 423 Interpretive Statements SINUS RHYTHM Compared to ECG 10/29/2023 14:15:05 No significant changes Electronically Signed On 10-30-2023 15:06:07 CDT by Bay Davalos M.D. [id number]
[2023-10-29 16:23] LABS: Add Urine Microscopic? NO; Charge for UA Resulting for Rev
[2023-10-29 16:27] LABS: Urine Appearance Clear (CLEAR); Urine Color Yellow (Yellow)
[2023-10-29 16:28] LABS: Bilirubin Urine Neg (Negative); Blood Urine Neg (Negative); Glucose Urine UA 1+ (Normal); Ketones Urine Negative (Negative); Leukocyte Esterase Urine Negative (Negative); Nitrate Urine Negative (Negative); Protein Urine Neg (Negative); Urobilinogen Urine Norm (Negative); pH Urine 6 (5-7)
[2023-10-29 16:52] VITALS: PULSE 72; O2SAT 96
[2023-10-29] MEDS: ketorolac 60 mg/2 mL INJ IM (16:52)
== END 2023-10-29 17:43 | disposition home or self-care (01) ==
PROVIDERS: Emergency Provider Family Medicine; PCP Physician Assistant
DX: R07.89 Other chest pain (principal); Z72.0 Tobacco use
CPT/HCPCS: 36415; 71045; 80053; 81003; 84484; 85025; 93005; 96372; 99285; J1885